=== PATIENT | female | born 1980 | race Two or more races ===

== ENCOUNTER 2016-08-17 06:54 | Observation (INO) | payer MEDICAID, OTHER ==
[~2016-08-17] VITALS: Ht 170.2 cm; Wt 72.6 kg
[2016-08-17] MEDS ORDERED: SODIUM CHLORIDE 0.9% 1,000 ML IVB ONE (07:39)
[2016-08-17] MEDS ORDERED: ALPR-229 PO (08:08)
[2016-08-17] MEDS ORDERED: [UNRECOGNIZED DRUG - CODE] PO (08:08)
[2016-08-17] MEDS ORDERED: LORA-354 PO (08:08)
[2016-08-17] MEDS ORDERED: LORA2TAB10 PO (08:08)
[2016-08-17] MEDS ORDERED: PREG200C19 PO (08:08)
[2016-08-17] MEDS ORDERED: IBU600T PO (08:08)
[2016-08-17] MEDS ORDERED: MONT10TA34 OR (08:08)
[2016-08-17] MEDS ORDERED: BUSP15TA60 PO (08:08)
[2016-08-17 08:15] LABS: Basophils # (auto) 0.1 uL; Basophils % (auto) 1.1 % (0.0-2.0); Eosinophils # (auto) 0.1 uL; Eosinophils % (auto) 2.1 % (0.0-7.0); Hematocrit 37.2 % (36.0-46.0); Hemoglobin 13.2 g/dL (12.2-16.2); Lymphocytes # (auto) 2.5 uL; Lymphocytes % (auto) 41.5 % (10.0-50.0); Mean Corpuscular Hemoglobin 33.2 pg (28.0-32.0); Mean Corpuscular Hgb Conc. 35.5 g/dL (32.0-36.0); Mean Corpuscular Volume 93.6 fL (80.0-100.0); Mean Platelet Volume 8.8 fL (7.4-10.4); Monocytes # (auto) 0.5 uL; Neutrophils # (auto) 2.8 uL; Neutrophils % (auto) 47.3 % (37.0-80.0); Platelet Count (auto) 312 10^3/uL (140-450); Red Cell Distribution Width 13.9 % (11.6-16.0); White Blood Cell 5.9 10^3/uL (4.4-10.8)
[2016-08-17 08:53] LABS: Acetaminophen < 2.0 ug/mL (10-30)
[2016-08-17 09:12] LABS: Albumin 3.8 g/dL (3.4-5.0); Anion Gap 14 (5-15); Aspartate Aminotransferase 51 U/L (15-37); BUN/Creatinine Ratio 18.8; Blood Urea Nitrogen 15 mg/dL (7-18); Carbon Dioxide 22 mmol/L (21-32); Chloride 113 mmol/L (98-107); GFR African American 104 mL/min; GFR Non-African American 86 mL/min; Glucose 71 mg/dL (74-106); Magnesium 2.5 mg/dL (1.6-2.6); Potassium 3.8 mmol/L (3.5-5.1); Sodium 149 mmol/L (136-145)
[2016-08-17 09:15] LABS: Alkaline Phosphatase 73 U/L (45-117); Bilirubin, Total < 0.1 mg/dL (0.2-1.0); Total Protein 7.5 g/dL (6.4-8.2)
[2016-08-17 13:50] LABS: Urine Bilirubin Negative (Negative); Urine Color Yellow (Yellow); Urine Glucose Normal (Normal); Urine Ketone Negative (Negative); Urine RBC 1 /hpf (0 - 4); Urine Squamous Epithelial Cell FEW /hpf (<5); Urine Urobilinogen Normal (Negative); Urine pH 5.5 (5.0-8.0)
[2016-08-17 13:51] LABS: Urine Blood 2+ /uL (Negative); Urine Nitrite POSITIVE (Negative)
[2016-08-17] MEDS ORDERED: SODIUM CHLORIDE 0.9% 1,000 ML IV ONE (15:45)
[2016-08-17] MEDS ORDERED: HYDROcodone-ACET 5/325MG TAB PO ONE (21:15)
[2016-08-17] MEDS ORDERED: HYDROmorphone HCL 2 MG/ML VL IV ONE (22:45)
[2016-08-17 23:20] VITALS: BP 120/81
== END 2016-08-17 23:26 | disposition home or self-care (01) | DRG 351 ==
LOC: EDBD 06:54 → ER 07:07 → OVERFLOW 07:41 → ER 23:24
PROVIDERS: ADMIT Emergency Medicine; ATTEND Emergency Medicine
DX: M62.838 Other muscle spasm (principal); N39.0 Urinary tract infection, site not specified; M54.2 Cervicalgia; F10.10 Alcohol abuse, uncomplicated; T50.901A Poisoning by unspecified drugs, medicaments and biological substances, accidental (unintentional), initial encounter; R41.82 Altered mental status, unspecified; R07.89 Other chest pain; V29.9XXA Motorcycle rider (driver) (passenger) injured in unspecified traffic accident, initial encounter; Y93.89 Activity, other specified; Y92.89 Other specified places as the place of occurrence of the external cause; Y99.8 Other external cause status
CPT/HCPCS: 36415; 70450; 71020; 72125; 80053; 80307; 80320; 80329; 81001; 83735; 84443; 84702; 85025; 96361; 96374; 99285; G0378; J1170; J7030

== ENCOUNTER 2017-12-17 14:44 | Emergency (ER) | payer MEDICAID ==
[~2017-12-17] VITALS: Ht 170.2 cm; Wt 81.6 kg
[~2017-12-17 14:44] MED LIST: ALPR-229 PO; BUSP15TA60 PO; IBU600T PO; LORA-354 PO; LORA2TAB10 PO; MONT10TA34 OR; PREG200C19 PO; QUET50TA PO
[2017-12-17] MEDS ORDERED: SODIUM CHLORIDE 0.9% 1,000 ML IV ONE (14:58)
[2017-12-17] MEDS ORDERED: LORazepam 2MG/ML-1ML VIAL IV ONE (15:00)
[2017-12-17 15:30] LABS: Basophils # (auto) 0.1 uL; Basophils % (auto) 1.1 % (0.0-2.0); Eosinophils # (auto) 0 uL; Eosinophils % (auto) 0.1 % (0.0-7.0); Hematocrit 35.9 % (36.0-46.0); Hemoglobin 12.6 g/dL (12.2-16.2); Lymphocytes # (auto) 1.4 uL; Mean Corpuscular Hemoglobin 32.1 pg (28.0-32.0); Mean Corpuscular Hgb Conc. 35.1 g/dL (32.0-36.0); Mean Corpuscular Volume 91.6 fL (80.0-100.0); Monocytes # (auto) 0.6 uL; Monocytes % (auto) 6.8 % (0.0-12.0); Neutrophils # (auto) 6.4 uL; Nucleated Red Blood Cells % 0.1 %; Platelet Count (auto) 243 10^3/uL (140-450); Red Blood Cells 3.92 10^6/uL (4.0-5.20); Red Cell Distribution Width 13.1 % (11.8-14.3); White Blood Cell 8.5 10^3/uL (4.4-10.8)
[2017-12-17 15:34] LABS: Potassium 3.7 mmol/L (3.5-5.1)
[2017-12-17 15:39] LABS: Albumin 3.7 g/dL (3.4-5.0); BUN/Creatinine Ratio 24.7; Calcium 8.9 mg/dL (8.5-10.1)
[2017-12-17 15:51] LABS: Bilirubin, Total 0.4 mg/dL (0.2-1.0); Total Protein 7.8 g/dL (6.4-8.2)
[2017-12-17 17:03] LABS: Urine Bacteria NONE SEEN /hpf (None Seen); Urine Blood TRACE /uL (Negative); Urine Mucus FEW (None Seen); Urine Specific Gravity 1.026 (1.001-1.035); Urine WBC 1 /hpf (0 - 5)
[2017-12-17 17:49] LABS: Alcohol, Urine < 3.0 mg/dL (0-5); Amphetamine Screen, Urine POSITIVE (NEGATIVE); Barbiturate Scree,Urine NEGATIVE (NEGATIVE); Benzodiazephine Screen, Urine NEGATIVE (NEGATIVE); Cannabinoid Screen, Urine NEGATIVE (NEGATIVE); Cocaine Screen, Urine NEGATIVE (NEGATIVE); Opiate Scree,Urine NEGATIVE (NEGATIVE); Phencyclidine Screen, Urine NEGATIVE (NEGATIVE)
[2017-12-17 19:45] VITALS: BP 142/90
[2017-12-17] MEDS ORDERED: cefTRIAXone 1GM/10ml IVPUSH 10 ML IV ONE (20:00)
== END 2017-12-17 17:52 | disposition home or self-care (01) ==
LOC: EDBD 14:44 → ER 14:44
DX: F41.9 Anxiety disorder, unspecified (principal); F15.10 Other stimulant abuse, uncomplicated; H10.9 Unspecified conjunctivitis
CPT/HCPCS: 36415; 51702; 80053; 80307; 81001; 85025; 96374; 96375; 99285; J0696; J2060; J7030